=== PATIENT | female | born 1955 | race Caucasian/White ===

== ENCOUNTER 2019-04-10 16:54 | Emergency (ER) | payer BC ==
[2019-04-10] MEDS ORDERED: Ondansetron ODT TAB* 4 MG PO ONE (18:04)
[2019-04-10 18:22] LABS: Influenza A Molecular NEGATIVE (Negative); Influenza B Molecular NEGATIVE (Negative)
[2019-04-10] MEDS ORDERED: Ibuprofen TAB* 600 MG PO ONE (18:26)
--- NOTE | 2019-04-10 18:29 | UC ---
UC General HPI - HPI Summary HPI Summary: 63-year-old woman comes in with a chief complaint of one week of symptoms of fever chills headache body aches neck pain decreased appetite. She's been nauseous for the last 1 day. She reports that she has not been able to eat for the last 4 days. When asked about abdominal pain she says she feels nauseous. Does have a headache and neck pain. - History of Current Complaint Chief Complaint: UCGeneralIllness Stated Complaint: ACHES, AND SINUS CONGESTION Time Seen by Provider: 04/10/19 17:57 Hx Last Menstrual Period: post Pain Intensity: 6 - Allergy/Home Medications Allergies/Adverse Reactions: Allergies Allergy/AdvReac Type Severity Reaction Status Date / Time cefaclor Allergy Mild Itching Verified 04/10/19 17:39 morphine Allergy Unknown Unknown Verified 04/10/19 17:39 Reaction Details Home Medications: Home Medications Varenicline Tartrate [Chantix] 1 tab PO DAILY 04/10/19 [History Confirmed ] PMH/Surg Hx/FS Hx/Imm Hx Previously Healthy: Yes - Surgical History Surgical History: None - Family History Known Family History: Positive: None - Social History Alcohol Use: Daily Alcohol Amount: glass of wine/daily Substance Use Type: None Smoking Status (MU): Former Smoker When Did the Patient Quit Smoking/Using Tobacco: ~2012 - Immunization History Most Recent Influenza Vaccination: April 2017 Review of Systems All Other Systems Reviewed And Are Negative: Yes Constitutional: Positive: Fever, Chills, Other - SEE HPI Skin: Positive: Other - Patient reports her skins hurts Eyes: Positive: Negative ENT: Positive: Nasal Discharge - MILD Respiratory: Positive: Negative Cardiovascular: Positive: Negative Gastrointestinal: Positive: Nausea, Other - SEE HPI Genitourinary: Positive: Negative Motor: Positive: Negative Neurovascular: Positive: Negative Musculoskeletal: Positive: Myalgia Neurological: Positive: Headache Psychological: Positive: Negative Is Patient Immunocompromised?: No Physical Exam Triage Information Reviewed: Yes Appearance: Well-Nourished, Ill-Appearing Vital Signs: Initial Vital Signs Temp 102.5 F 04/10/19 17:31 Pulse 103 04/10/19 17:31 Resp 16 04/10/19 17:31 BP 128/58 04/10/19 17:31 Pulse Ox 99 04/10/19 17:31 Vital Signs Reviewed: Yes Eye Exam: Normal Eyes: Positive: Conjunctiva Clear ENT: Positive: Other - ORAL MUCOSA SLIGHTLY DRY Neck: Positive: Supple - PAIN WITH ROM Respiratory: Positive: Normal breath sounds, No respiratory distress Cardiovascular: Positive: Tachycardia Musculoskeletal: Positive: Strength Intact, ROM Intact Neurological: Positive: Alert, Muscle Tone Normal Psychological: Positive: Age Appropriate Behavior Skin Exam: Normal Course/Dx - Course Course Of Treatment: Patient's influenza was negative. Do not have a source for the fever headache and neck pain myalgias and nausea. With the patient being tachycardic and having a fever she's bordering on sepsis I recommended further evaluation in the emergency department. Patient preferred to go by POV. In the clinic patient was given Zofran 4 mg ODT and ibuprofen 600 mg by mouth. - Diagnoses Provider Diagnosis: Fever, Headache, Nausea Discharge ED - Sign-Out/Discharge Documenting (check all that apply): Patient Departure All imaging exams completed and their final reports reviewed: No Studies - Discharge Plan Condition: Stable Disposition: HOME-RECOMMEND TO ED Referrals: Ashwin Moraes MD [Primary Care Provider] - Additional Instructions: GO DIRECTLY TO THE EMERGENCY DEPARTMENT FOR FURTHER EVALUATION. - Billing Disposition and Condition Condition: STABLE Disposition: Home-Recommend to ED
[2019-04-10 18:34] VITALS: BP 125/58
== END 2019-04-10 18:41 | disposition home health service (06) ==
LOC: UCEAST 16:54
DX: R50.9 Fever, unspecified (principal); R51 Headache; R11.0 Nausea; Z87.891 Personal history of nicotine dependence; Z88.5 Allergy status to narcotic agent
CPT/HCPCS: 99212; A9270-GY; G0463

== ENCOUNTER 2019-04-10 18:52 | Emergency (ER) | payer BC ==
--- NOTE | 2019-04-10 20:26 | ED ---
Influenza-Like Illness - HPI Summary HPI Summary: 63 year old F presenting to [facility] from [facility] complains of headache, neck ache, myalgia, chills, diaphoresis, fatigue, lethargy, nasal discharge for 4 days. Patient denies cough, sore throat, vomiting, diarrhea, dysuria, rash. Patient states she became nauseous at [facility]. Patient had flu tests done at [facility] which were negative. The patient rates the pain 10/10 in severity. Symptoms aggravated by nothing. Symptoms alleviated by cold, pain, and allergy medications. Denies being around anyone sick recently. Denies recent tick bites. 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 She states she has been taking pictures of deers recently. Patient states she has had tick bites in the past. Medications reviewed. Allergies noted. - History of Current Complaint Chief Complaint: EDFluSymptoms Time Seen by Provider: 04/10/19 20:18 Hx Obtained From: Patient Onset/Duration: Lasting Days - 4, Still Present Severity: Severe - Allergy/Home Medications Allergies/Adverse Reactions: Allergies Allergy/AdvReac Type Severity Reaction Status Date / Time cefaclor Allergy Mild Itching Verified 04/10/19 18:58 morphine AdvReac Unknown Unknown Verified 04/10/19 18:58 Reaction Details PMH/Surg Hx/FS Hx/Imm Hx Endocrine/Hematology History: Denies: Hx Diabetes Cardiovascular History: Denies: Hx Hypertension History: Denies: Hx Renal Disease Neurological History: Denies: Other Neuro Impairments/Disorders - Surgical History Surgery Procedure, Year, and Place: none Infectious Disease History: No Infectious Disease History: Denies: Traveled Outside the [place] in Last 30 Days - Family History Known Family History: Positive: Other - NEG: Family breast cancer - Social History Alcohol Use: Daily Alcohol Amount: glass of wine/daily Hx Substance Use: Yes Substance Use Type: Reports: Marijuana Hx Tobacco Use: Yes Smoking Status (MU): Light Every Day Tobacco Smoker Review of Systems Positive: Chills, Fatigue, Skin Diaphoresis Positive: Nasal Discharge. Negative: Sore Throat Negative: Cough Positive: Nausea. Negative: Vomiting, Diarrhea Negative: dysuria Positive: Myalgia, Other - neck ache Negative: Rash Neurological: Other - lethargy Positive: Headache All Other Systems Reviewed And Are Negative: Yes Physical Exam - Summary Physical Exam Summary: Constitutional: Well-developed, Well-nourished, Alert. (-) Distressed Skin: Warm, Dry HENT: Normocephalic; Atraumatic Eyes: Conjunctiva normal Neck: Musculoskeletal ROM normal neck. (-) JVD, (-) Stridor, (-) Tracheal deviation Cardio: Rhythm regular, rate normal, Heart sounds normal; Intact distal pulses; The pedal pulses are 2+ and symmetric. Radial pulses are 2+ and symmetric. (-) Murmur Pulmonary/Chest wall: Effort normal. (-) Respiratory distress, (-) Wheezes, (-) Rales Abd: Soft, (-) tenderness, (-) Distension, (-) Guarding, (-) Rebound Musculoskeletal: (-) Edema Lymph: (-) Cervical adenopathy Neuro: Alert, Oriented x3, Jolt accentuation negative, No evidence of meningismus Psych: Mood and affect Normal Triage Information Reviewed: Yes Vital Signs On Initial Exam: Initial Vitals Temp Pulse Resp BP Pulse Ox 102.3 F 113 18 110/69 96 04/10/19 18:58 04/10/19 18:58 04/10/19 18:58 04/10/19 18:58 04/10/19 18:58 Vital Signs Reviewed: Yes Diagnostics - Vital Signs Vital Signs Temp Pulse Resp BP Pulse Ox 04/10/19 19:50 98.0 F 04/10/19 18:58 102.3 F 113 18 110/69 96 - Laboratory Result Diagrams: 04/10/19 20:43 04/10/19 20:43 Lab Statement: Any lab studies that have been ordered have been reviewed, and results considered in the medical decision making process. - Radiology Chest x-ray Radiology Interpretation Completed By: ED Physician Summary of Radiographic Findings: no acute process. pending offical report Flu Symptom Course/Dx - Course Course Of Treatment: Patient is here with fever and myalgias for the past week that have been worse in the past 4 days. [facility]. Patient felt much better upon arrival here with no fever or tachycardia. Patient had no evidence of meningismus and definitely does not have bacterial meningitis on exam. Patient had a CBC which was unremarkable. Patient has a CMP with mildly elevated LFTs which could be consistent with her daily drinking. Patient had to panel sent due to that however. Patient negative chest x-ray and UA. Patient had a negative Monospot. Given patient's "summer flu" patient was treated with doxycycline for possible Lyme disease. - Diagnoses Provider Diagnoses: Fever, Myalgia Discharge ED - Sign-Out/Discharge Documenting (check all that apply): Patient Departure - Discharge Patient Received Moderate/Deep Sedation with Procedure: No - Discharge Plan Condition: Stable Disposition: HOME Prescriptions: DOXYcycline CAP(*) [DOXYcycline 100MG CAP(*)] 100 mg PO BID 14 Days #28 cap Patient Education Materials: Fever in Adults (ED) Referrals: Ashwin Moraes MD [Primary Care Provider] - 1 Day Additional Instructions: Take doxycycline as prescribed. We will call you with any positive results. PLEASE RETURN TO EMERGENCY DEPARTMENT FOR ANY NEW OR WORSENING SYMPTOMS such as intractable vomiting, any change in mental status, slurred speech. Please follow up with your primary care physician in 1-3 days. - Billing Disposition and Condition Condition: STABLE Disposition: Home - Attestation Statements Document Initiated by Melanyibe: Yes Documenting Scribe: Kae Torres Provider For Whom Eliseo is Documenting (Include Credential): Flex Holley MD Scribe Attestation: Kae Osorio, scribed for Flex Holley MD on 04/10/19 at 2201. Scribe Documentation Reviewed: Yes Provider Attestation: The documentation as recorded by the Kae gamboa accurately reflects the service I personally performed and the decisions made by , Flex Holley MD Status of Scribe Document: Viewed
[2019-04-10] MEDS ORDERED: Ibuprofen TAB* 600 MG PO ONE (20:32)
[2019-04-10 20:58] LABS: ABS Lymphocytes 0.3 10^3/ul (1.0-4.8); ABS Monocytes 0.1 10^3/ul (0-0.8); ABS Neutrophils 3.3 10^3/ul (1.5-7.7); Hematocrit 39 % (35-47); Hemoglobin 13.6 g/dL (12.0-16.0); Lymphocyte % 6.8 %; Mean Corpuscular HGB Conc 35 g/dL (31-36); Mean Corpuscular Hemoglobin 33 pg (27-31); Mean Corpuscular Volume 93 fL (80-97); Mean Platelet Volume 7.9 fL (7.4-10.4); Platelet Count 124 10^3/uL (150-450); Red Blood Count 4.13 10^6 /uL (3.70-4.87); Red Cell Distribution Width 14 % (10-15); White Blood Count 3.7 10^3/uL (3.5-10.8)
[2019-04-10 21:06] LABS: Urine Appearance Cloudy; Urine Bacteria Absent (Absent); Urine Bilirubin Negative (Negative); Urine Blood Negative (Negative); Urine Color Yellow; Urine Glucose Negative (Negative); Urine Ketones 1+ (Negative); Urine Nitrite Negative (Negative); Urine Protein 2+(100 mg/dL) (Negative); Urine Red Blood Cell Absent (Absent); Urine Specific Gravity 1.021 (1.010-1.030); Urine Squamous Epithelial Cell Present (Absent); Urine Urobilinogen Negative (Negative); Urine White Blood Cell Absent (Absent)
[2019-04-10 21:11] LABS: Albumin/Globulin Ratio 1.6 (1-3); BUN/Creatinine Ratio 20.4 (8-20); Calcium 8.3 mg/dL (8.6-10.3); Globulin 2.5 g/dL (2-4); Potassium 3.7 mmol/L (3.5-5.0); Total Bilirubin 0.4 mg/dL (0.2-1.0); Total Protein 6.5 g/dL (6.4-8.9)
[2019-04-10] MEDS ORDERED: DOXYcycline CAP(*) 100 MG PO SCH (22:00)
[2019-04-10 22:30] VITALS: BP 117/55
[2019-04-14 19:11] LABS: Anaplasma phagocytophilum Negative (Negative); B. miyamotoi PCR, B Negative (Negative); Babesia divergens/MO-1 Negative (Negative); Babesia ducani Negative (Negative); Ehrlichia chaffeensis Negative (Negative); Ehrlichia ewingii/canis Negative (Negative); Ehrlichia muris eauclairensis Negative (Negative)
== END 2019-04-10 22:28 | disposition home or self-care (01) ==
LOC: ED 18:52
DX: M79.10 Myalgia, unspecified site (principal); R50.9 Fever, unspecified; F17.200 Nicotine dependence, unspecified, uncomplicated; Z79.899 Other long term (current) drug therapy; Z88.1 Allergy status to other antibiotic agents; Z88.5 Allergy status to narcotic agent
CPT/HCPCS: 36415; 71046; 80053; 81003; 81015; 85025; 86308; 86618; 87040; 87798; 99283; A9270-GY